=== PATIENT | female | born 1945 | race Caucasian/White ===

== ENCOUNTER 2019-02-24 09:18 | Outpatient (CLI) | payer MEDICARE ==
[2019-02-24 14:01] LABS: #Basophils 0.1 thou/uL (0.0-0.2); #Eosinphils 0.1 thou/uL (0.0-0.7); #Lymphocytes 2.6 thou/uL (1.20-3.40); #Monocytes 0.7 thou/uL (0.11-0.59); #Neutrophils 3.3 thou/uL (1.40-6.50); %Basophils 0.8 % (0.0-1.0); %Eosinophils 1.7 % (0.0-10.0); %Lymphocytes 38.1 % (21.0-51.0); %Monocytes 10.5 % (0.0-10.0); %Neutrophils 48.9 % (42.0-75.0); Hemoglobin 14.1 g/dL (12.0-16.0); Mean Corpuscular HGB CONC 33.2 g/dL (32.0-36.0); Mean Corpuscular Hemoglobin 30.6 pg (27.0-31.0); Mean Corpuscular Volume 92.3 fL (78.0-98.0); Mean Platelet Volume 8.5 fL (7.4-10.4); Platelet Count 235 thou/uL (130-400); RBC Distribution Width 12.4 % (11.5-14.5); Red Blood Cell (RBC) Count 4.61 mill/uL (4.20-5.40); White Blood Cell (WBC) Count 6.7 thou/uL (4.8-10.8)
[2019-02-24 14:11] LABS: INR-International Normal Ratio 1.1; Prothrombin Time 14.4 SEC (12.0-14.7)
[2019-02-24 14:26] LABS: Bilirubin Negative (Negative); Blood, Urine 3+ (Negative); Clarity Turbid (Clear); Glucose, Urine (Dipstick) Normal (Negative); Leukocyte 250 Leu/uL (Negative); Nitrite Negative (Negative); Protein, Urine (Dipstick) Negative (Neg-Trace); Urobilinogen Normal mg/dL (Less than 2)
[2019-02-24 14:35] LABS: Bacteria/HPF Rare-Few HPF (None Seen)
[2019-02-24 14:41] LABS: Anion Gap 15 mmol/L (10-20); BUN (Urea Nitrogen) 15 mg/dL (9.8-20.1); Calc. Creatinine Clearance 0 mL/min (70-130); Calcium 9.6 mg/dL (7.8-10.44); Carbon Dioxide 22 mmol/L (23-31); Chloride 99 mmol/L (98-107); Estimated GFR-MDRD 63; Glucose 132 mg/dL (83-110); Potassium 3.1 mmol/L (3.5-5.1); Sodium 133 mmol/L (136-145)
== END 2019-02-24 09:19 | disposition home or self-care (01) ==
LOC: LABBT 09:18
PROVIDERS: ATTEND Orthopaedic Surgery
DX: Z01.818 Encounter for other preprocedural examination (principal); M17.0 Bilateral primary osteoarthritis of knee
CPT/HCPCS: 80048; 81001; 85025; 85610; 87081; 93005; 93010

== ENCOUNTER 2019-03-07 06:34 | Day surgery (SDC) | payer MEDICARE ==
[2019-02-24 09:42] VITALS: BMI 30.1
[2019-03-07] MEDS ORDERED: Sodium Chloride 0.9% 100 ML ONE (07:08)
[2019-03-07] MEDS ORDERED: Tranexamic Acid 1,000 MG/10 ML VIAL ONE (07:08)
[2019-03-07] MEDS ORDERED: Vancomycin HCl 1.5 GM in Sodium Chloride 0.9% 250 ML 300 ML IVPB SCH ×2 (07:15→22:00)
[2019-03-07] MEDS ORDERED: Midazolam HCl 2 mg/2 ml Vial ONE (07:47)
[2019-03-07] MEDS ORDERED: Fentanyl 100 MCG/2 ML VIAL ONE (07:47)
[2019-03-07] MEDS ORDERED: Fentanyl 100 MCG/2 ML VIAL IV PRN (07:56)
[2019-03-07] MEDS ORDERED: Promethazine HCl 25 MG/ML VIAL IM PRN ×3 (07:56→11:32)
[2019-03-07] MEDS ORDERED: Ondansetron PF 4 MG/2 ML Vial IVP PRN ×2 (07:56→11:32)
[2019-03-07] MEDS ORDERED: traMADol HCl 50 MG TAB PO PRN ×2 (07:56)
[2019-03-07] MEDS ORDERED: Ropivacaine HCl/PF 250 ML in Premix Bag 1 BAG NERVE BLCK SCH (07:56)
[2019-03-07] MEDS ORDERED: Ketorolac Tromethamine 30 MG/ML VIAL IVP PRN (07:56)
[2019-03-07] MEDS ORDERED: HYDROcodone/Acetaminophen 10/325 mg Tablet PO PRN (07:56)
[2019-03-07] MEDS ORDERED: Zolpidem Tartrate 5 MG TAB PO PRN ×2 (07:56→11:32)
[2019-03-07] MEDS ORDERED: Lidocaine 1% (PF) 30 ML VIAL ONE (08:15)
[2019-03-07] MEDS ORDERED: methylPREDNISolone Acetate 40 mg/ml Vial ONE (08:15)
[2019-03-07] MEDS ORDERED: Bupivacaine PF 0.5% 30 ML VIAL ONE (08:15)
[2019-03-07] MEDS ORDERED: Promethazine HCl 25 MG/ML VIAL SLOW IVP PRN (09:41)
[2019-03-07] MEDS ORDERED: Ondansetron HCl/PF 4 MG/2 ML Vial IVP PRN (09:41)
[2019-03-07] MEDS ORDERED: diphenhydrAMINE 25 MG CAP PO PRN (11:32)
[2019-03-07] MEDS ORDERED: Acetaminophen 325 MG TAB PO PRN (11:32)
[2019-03-07] MEDS ORDERED: Tranexamic Acid 1,000 MG in Sodium Chloride 0.9% 100 ML IVPB SCH (11:45)
--- NOTE | 2019-03-07 12:43 | OP ---
DATE OF PROCEDURE: 03/07/2019 BLACK TOP RAKER: Alan Pope PA-C PREOPERATIVE DIAGNOSIS: Bilateral knee osteoarthrosis, left worse than right. POSTOPERATIVE DIAGNOSIS: Bilateral knee osteoarthrosis, left worse than right. PROCEDURE: Left total knee replacement using [employer] pinless navigation system. ANESTHESIA: General anesthetic. She also had blocks in the left lower extremity. BLOOD LOSS: Minimal. COMPLICATIONS: None. TOURNIQUET TIME: DISPOSITION: Recovery room in stable condition. IMPLANTS: To the left side include a [employer] total knee system, the femur was size 4 cruciate retaining femur, we used a size 3 primary tibial base plate. We used a size 3 x 9 mm CS X3 tibial bearing and an asymmetric 29 x 9 X3 patella. INDICATIONS: A 73-year-old female, who has dealt with bilateral knee arthritis for quite a while. At this time, she wished to have her knee replaced and the right knee injected. After all appropriate consent forms were explained and signed, she was taken to the operative room and at this time was given general anesthetic. Once the level of anesthesia was appropriate, . PROCEDURE IN DETAIL: After all appropriate consent forms were explained and signed, the patient was taken back to the operating room and at this time was given general anesthetic. Once the level of anesthesia was appropriate, the right knee was cleaned with alcohol and a mixture of local with 80 mg Depo-Medrol was injected into the right knee without complication. Band-Aid was applied. A well-padded tourniquet was placed on the left leg, and the leg was then prepped and draped in standard surgical fashion. The limb was exsanguinated and tourniquet taken up to 300 mmHg. Midline incision was made with a 10 blade down through the skin and subcutaneous tissue. Bovie electrocautery was used to coagulate any brisk venous bleeding. A new blade was used to make a medial parapatellar arthrotomy. Small subperiosteal release was performed medially and excess fat pad was removed. The knee was flexed up to gain access to the femur. The femur was navigated and distal femoral resection was made. Epicondylar access was used to align our sizing jig and this was pinned in place. We sized our femur to be a size 4. 4:1 cutting block was applied and pinned. Anterior and posterior chamfer cuts were then made. We navigated out our proximal tibia and made our proximal tibial resection. Spreaders were used to remove any posterior osteophytes off the back of the femur as well as remaining meniscal tissue. A long alignment edison was then used to achieve correct rotation of our tibial baseplate and a size 3 was chosen. This was pinned in place. We trialed the polyethylene and a 3 x 9 mm CS X3 tibial bearing polyethylene gave us full extension and good stability throughout range of motion. Two towel clips and a saw were used to cut our patella. Three lug nuts were drilled and an asymmetric 29 x 9 X3 patella was trialed which sat nicely in the trochlear groove. We then drilled our femur and punched our tibia. All components were removed. The knee was thoroughly irrigated and dried. Cement was mixed into the cement gun on the back table. Components were then placed. The knee was held out in full extension until the cement had dried. All excess bone cement was removed. Multiple #2 Vicryl stitches as well as a Quill were used to close our extensor mechanism. 0 Quill followed by a running Monoderm was then used to close the skin. Surgicel glue was then used on the skin. Once this had dried, soft tissue dressing was applied to the limb, tourniquet was let down, and the toes pinked up nicely. The patient was then awakened and taken to the recovery room in stable condition. All counts were correct at the end of the case. The patient did receive preoperative IV antibiotics. The patient was injected with Marcaine for postoperative pain relief. Job ID: [id number] [facility]
[2019-03-07] MEDS: Sodium Chloride 0.9% 1,000 ML IV SCH ×2 (13:59→20:58)
[2019-03-07] MEDS: CEFAZOLIN 2 GM in Premix Bag 1 BAG IVPB SCH (14:18)
[2019-03-07] MEDS ORDERED: Bupivacaine HCl 0.5%/Epinephrine 1:200,000/PF 30 ml Vial ONE (15:25)
[2019-03-07] MEDS ORDERED: Ropivacaine 0.2% HCl/PF (40 MG/20 ML VIAL) ONE (15:25)
[2019-03-07] MEDS ORDERED: Ondansetron PF 4 MG/2 ML Vial ONE (16:13)
[2019-03-07] MEDS ORDERED: PROPOFOL 200 MG/20 ML VIAL ONE (16:13)
[2019-03-07] MEDS ORDERED: Lidocaine 1% PF 5 ML VIAL ONE (16:13)
[2019-03-07] MEDS: hydrALAZINE 25 MG TAB PO SCH (21:02)
[2019-03-07] MEDS: Atorvastatin Calcium 10 MG TAB PO SCH (21:05)
[2019-03-07] MEDS: Aspirin 81 mg Enteric Coated Tablet PO SCH (21:05)
[2019-03-07] MEDS: HYDROcodone/Acetaminophen 10/325 mg Tablet PO PRN (21:44)
[2019-03-08] MEDS: CEFAZOLIN 2 GM in Premix Bag 1 BAG IVPB SCH
[2019-03-08] MEDS: HYDROcodone/Acetaminophen 10/325 mg Tablet PO PRN ×3 (04:46→20:47)
[2019-03-08 04:49] LABS: Hemoglobin 12.3 g/dL (12.0-16.0); Mean Corpuscular HGB CONC 33.7 g/dL (32.0-36.0); Mean Corpuscular Hemoglobin 30.7 pg (27.0-31.0); Mean Corpuscular Volume 91.3 fL (78.0-98.0); Mean Platelet Volume 8.1 fL (7.4-10.4); Platelet Count 179 thou/uL (130-400); RBC Distribution Width 12.4 % (11.5-14.5); Red Blood Cell (RBC) Count 4.02 mill/uL (4.20-5.40); White Blood Cell (WBC) Count 11.3 thou/uL (4.8-10.8)
[2019-03-08] MEDS: Sodium Chloride 0.9% 1,000 ML IV SCH ×2 (04:58→10:18)
[2019-03-08] MEDS: Multivitamin W/ Minerals 1 TAB PO SCH (09:07)
[2019-03-08] MEDS: Triamterene/Hydrochlorothiazide 37.5 mg/25 mg Tablet PO SCH (09:08)
[2019-03-08] MEDS: Ferrous Gluconate 324 MG TAB PO SCH ×2 (09:08→20:45)
[2019-03-08] MEDS: hydrALAZINE 25 MG TAB PO SCH ×2 (09:08→20:46)
[2019-03-08] MEDS: Aspirin 81 mg Enteric Coated Tablet PO SCH ×2 (09:09→20:45)
[2019-03-08] MEDS: Senokot S 8.6-50 MG TAB PO SCH ×2 (09:09→20:47)
--- NOTE | 2019-03-08 11:05 | PDOC.HOSPP ---
- Subjective Encounter Date: 03/08/19 Encounter Time: 08:40 Subjective: Patient seen and examined. No new complaints. No overnight events - Objective Vital Signs & Weight: Vital Signs (12 hours) Temp Pulse Resp BP Pulse Ox 03/08/19 09:14 98.9 F 94 94 L 03/08/19 07:23 99.8 F H 107 H 14 136/78 96 03/08/19 04:00 99.2 F 92 18 142/84 H 96 03/08/19 00:00 97.8 F 100 18 105/63 97 Weight Weight 210 lb I&O: 03/07/19 03/08/19 03/09/19 06:59 06:59 06:59 Intake Total 4080 Output Total 1999 Result Diagrams: 03/08/19 04:27 Hospitalist ROS - Review of Systems Eyes: denies: pain, vision change, conjunctivae inflammation, eyelid inflammation, redness, other ENT: denies: ear pain, ear discharge, nose pain, nose discharge, nose congestion , mouth pain, mouth swelling, throat pain, throat swelling, other Respiratory: denies: cough, dry, shortness of breath, hemoptysis, SOB with excertion, pleuritic pain, sputum, wheezing, other Cardiovascular: denies: chest pain, palpitations, orthopnea, paroxysmal noc. dyspnea, edema, light headedness, other Gastrointestinal: denies: nausea, vomiting, abdominal pain, diarrhea, constipation, melena, hematochezia, other Genitourinary: denies: dysuria, frequency, incontinence, hematuria, retention, other Musculoskeletal: denies: neck pain, shoulder pain, arm pain, back pain, hand pain, leg pain, foot pain, other Skin: denies: rash, lesions, heather, bruising, other - Medication Medications: Active Medications Generic Name Dose Route Start Last Admin Trade Name Freq PRN Reason Stop Dose Admin Hydrocodone Bitart/Acetaminophen 2 tab 03/07/19 07:56 03/08/19 09:10 [place] 10/325 PO 2 tab Q4H PRN Administration PAIN (4-6) Aspirin 81 mg 03/07/19 21:00 03/08/19 09:09 Ecotrin PO 81 mg BID [place] Administration Atorvastatin Calcium 10 mg 03/07/19 21:00 03/07/19 21:05 Lipitor PO 10 mg HS [place] Administration Ferrous Gluconate 324 mg 03/08/19 09:00 03/08/19 09:08 Fergon PO 324 mg BID [place] Administration Hydralazine HCl 50 mg 03/07/19 21:00 03/08/19 09:08 Apresoline PO 50 mg BID [place] Administration Sodium Chloride 1,000 mls @ 100 mls/hr 03/07/19 11:45 03/08/19 10:18 Normal Saline 0.9% IV Not Given .Q10H [place] Iron/Minerals/Multivitamins 1 tab 03/08/19 09:00 03/08/19 09:07 Theragran M PO 1 tab DAILY [place] Administration Senna/Docusate Sodium 2 tab 03/08/19 09:00 03/08/19 09:09 Senokot S PO 2 tab BID [place] Administration Sodium Chloride 10 ml 03/07/19 09:00 03/08/19 09:14 Flush - Normal Saline IVF Not Given Q12HR [place] Triamterene/HCTZ 1 tab 03/08/19 09:00 03/08/19 09:08 Maxzide-25 PO 1 tab QAM [place] Administration - Exam General Appearance: NAD, awake alert Eye: PERRL, anicteric sclera ENT: normocephalic atraumatic, no oropharyngeal lesions Neck: supple, symmetric, no JVD, no thyromegaly Heart: RRR, no murmur, no gallops, no rubs Respiratory: CTAB, no wheezes, no rales, no ronchi Gastrointestinal: soft, non-tender, non-distended, normal bowel sounds Extremities: no cyanosis, no clubbing, no edema Extremities - other findings: surigcal site with dressing, nerve block in place Skin: normal turgor, no lesions Neurological: cranial nerve grossly intact, no focal deficits Musculoskeletal: normal tone, normal strength Psychiatric: normal affect, normal behavior Hosp A/P (1) Status post total left knee replacement Code(s): Z96.652 - PRESENCE OF LEFT ARTIFICIAL KNEE JOINT Status: Acute (2) Hypertension Code(s): I10 - ESSENTIAL (PRIMARY) HYPERTENSION Status: Chronic (3) Dyslipidemia Code(s): E78.5 - HYPERLIPIDEMIA, UNSPECIFIED Status: Chronic (4) Obesity (BMI 30.0-34.9) Code(s): E66.9 - OBESITY, UNSPECIFIED Status: Chronic (5) Osteoarthritis Code(s): M19.90 - UNSPECIFIED OSTEOARTHRITIS, UNSPECIFIED SITE Status: Chronic - Plan old records reviewed/req, PT/OT continue aspirin for DVT prophylaxis her pain is controlled nerve block as per anesthesia continue PT as per protocol her home medication reconcileed discharge decision as per primary team medication reviewed as above, symptomatic treatment code full code
[2019-03-08] MEDS: Atorvastatin Calcium 10 MG TAB PO SCH (20:47)
[2019-03-09] MEDS: Sodium Chloride 0.9% 1,000 ML IV SCH ×2 (04:23→13:12)
[2019-03-09 04:53] LABS: Hemoglobin 11.3 g/dL (12.0-16.0); Mean Corpuscular Hemoglobin 30.8 pg (27.0-31.0); Mean Corpuscular Volume 90.7 fL (78.0-98.0); Mean Platelet Volume 8.1 fL (7.4-10.4); Platelet Count 173 thou/uL (130-400); RBC Distribution Width 12.4 % (11.5-14.5); Red Blood Cell (RBC) Count 3.68 mill/uL (4.20-5.40); White Blood Cell (WBC) Count 12.4 thou/uL (4.8-10.8)
[2019-03-09] MEDS: Aspirin 81 mg Enteric Coated Tablet PO SCH ×2 (08:18→20:15)
[2019-03-09] MEDS: Ferrous Gluconate 324 MG TAB PO SCH ×2 (08:18→20:15)
[2019-03-09] MEDS: Senokot S 8.6-50 MG TAB PO SCH ×2 (08:18→20:15)
[2019-03-09] MEDS: Triamterene/Hydrochlorothiazide 37.5 mg/25 mg Tablet PO SCH (08:18)
[2019-03-09] MEDS: Multivitamin W/ Minerals 1 TAB PO SCH (08:18)
[2019-03-09] MEDS: hydrALAZINE 25 MG TAB PO SCH ×2 (08:18→20:15)
[2019-03-09] MEDS: HYDROcodone/Acetaminophen 10/325 mg Tablet PO PRN ×2 (08:19→18:51)
--- NOTE | 2019-03-09 14:28 | PDOC.HOSPP ---
- Subjective Encounter Date: 03/09/19 Encounter Time: 14:27 Subjective: no chest pain, nausea, fever - Objective Vital Signs & Weight: Vital Signs (12 hours) Temp Pulse Resp BP BP Pulse Ox 03/09/19 08:19 95 03/09/19 08:18 83 150/84 H 03/09/19 07:35 98.4 F 83 16 150/84 H 95 03/09/19 04:00 98.7 F 98 16 112/71 93 L Weight Admit Weight 210 lb Weight 210 lb I&O: 03/08/19 03/09/19 03/10/19 06:59 06:59 06:59 Intake Total 4080 1900 960 Output Total 1999 1400 1400 Balance 2080 500 -440 Result Diagrams: 03/09/19 04:25 Hospitalist ROS - Medication Medications: Active Medications Generic Name Dose Route Start Last Admin Trade Name Freq PRN Reason Stop Dose Admin Hydrocodone Bitart/Acetaminophen 2 tab 03/07/19 07:56 03/09/19 08:19 [place] 10/325 PO 2 tab Q4H PRN Administration PAIN (4-6) Aspirin 81 mg 03/07/19 21:00 03/09/19 08:18 Ecotrin PO 81 mg BID [place] Administration Atorvastatin Calcium 10 mg 03/07/19 21:00 03/08/19 20:47 Lipitor PO 10 mg HS [place] Administration Ferrous Gluconate 324 mg 03/08/19 09:00 03/09/19 08:18 Fergon PO 324 mg BID [place] Administration Hydralazine HCl 50 mg 03/07/19 21:00 03/09/19 08:18 Apresoline PO 50 mg BID [place] Administration Ropivacaine 250 ml/ Device 250 mls @ 0 mls/hr 03/07/19 07:56 03/08/19 12:46 NERVE BLCK 250 mls INF [place] Administration As Directed Sodium Chloride 1,000 mls @ 100 mls/hr 03/07/19 11:45 03/09/19 13:12 Normal Saline 0.9% IV Not Given .Q10H [place] Iron/Minerals/Multivitamins 1 tab 03/08/19 09:00 03/09/19 08:18 Theragran M PO 1 tab DAILY [place] Administration Mirabegron 25 mg 03/08/19 09:00 03/09/19 08:19 Myrbetriq Er PO 25 mg DAILY [place] Administration Senna/Docusate Sodium 2 tab 03/08/19 09:00 03/09/19 08:18 Senokot S PO 2 tab BID [place] Administration Sodium Chloride 10 ml 03/07/19 09:00 03/09/19 08:20 Flush - Normal Saline IVF 10 ml Q12HR [place] Administration Triamterene/HCTZ 1 tab 03/08/19 09:00 03/09/19 08:18 Maxzide-25 PO 1 tab QAM [place] Administration - Exam Neck: no JVD Heart: RRR, no murmur Respiratory: CTAB Gastrointestinal: soft, normal bowel sounds Extremities: no edema Hosp A/P (1) Status post total left knee replacement Code(s): Z96.652 - PRESENCE OF LEFT ARTIFICIAL KNEE JOINT Status: Acute (2) Dyslipidemia Code(s): E78.5 - HYPERLIPIDEMIA, UNSPECIFIED Status: Chronic (3) Hypertension Code(s): I10 - ESSENTIAL (PRIMARY) HYPERTENSION Status: Chronic Qualifiers: Hypertension type: essential hypertension Qualified Code(s): I10 - Essential (primary) hypertension (4) Osteoarthritis Code(s): M19.90 - UNSPECIFIED OSTEOARTHRITIS, UNSPECIFIED SITE Status: Chronic Qualifiers: Osteoarthritis location: unspecified site - Plan slow progress with PT cont present meds will follow
[2019-03-09] MEDS: Atorvastatin Calcium 10 MG TAB PO SCH (20:15)
[2019-03-10] MEDS: Sodium Chloride 0.9% 1,000 ML IV SCH ×2 (01:02→10:06)
[2019-03-10 05:19] LABS: White Blood Cell (WBC) Count 10.8 thou/uL (4.8-10.8)
[2019-03-10 05:37] LABS: Hemoglobin 11.1 g/dL (12.0-16.0); Mean Corpuscular Hemoglobin 29.9 pg (27.0-31.0); Mean Corpuscular Volume 90.6 fL (78.0-98.0); Mean Platelet Volume 8.5 fL (7.4-10.4); Platelet Count 178 thou/uL (130-400); RBC Distribution Width 12.5 % (11.5-14.5); Red Blood Cell (RBC) Count 3.72 mill/uL (4.20-5.40)
[2019-03-10] MEDS: Multivitamin W/ Minerals 1 TAB PO SCH (08:00)
[2019-03-10] MEDS: Aspirin 81 mg Enteric Coated Tablet PO SCH (08:01)
[2019-03-10] MEDS: hydrALAZINE 25 MG TAB PO SCH (08:01)
[2019-03-10] MEDS: Triamterene/Hydrochlorothiazide 37.5 mg/25 mg Tablet PO SCH (08:01)
[2019-03-10] MEDS: Senokot S 8.6-50 MG TAB PO SCH (08:01)
[2019-03-10] MEDS: Ferrous Gluconate 324 MG TAB PO SCH (08:01)
[2019-03-10] MEDS: HYDROcodone/Acetaminophen 10/325 mg Tablet PO PRN (08:02)
[2019-03-10 14:40] VITALS: BP 147/80; TEMP 96.1
[2019-03-13] MEDS ORDERED: Estradiol 0.01% Vaginal Cream 42.5 gm Tube VAG SCH (08:31)
== END 2019-03-10 14:55 | disposition home or self-care (01) ==
LOC: SDC 06:34 → SJJU 11:32 → SDC 03-10 14:55
PROVIDERS: ATTEND Orthopaedic Surgery
PROC: 0SRD0JZ Replacement of Left Knee Joint with Synthetic Substitute, Open Approach (ICD-10-PCS; principal; 2019-03-07)
PROC: 3E0T3BZ Introduction of Anesthetic Agent into Peripheral Nerves and Plexi, Percutaneous Approach (ICD-10-PCS; 2019-03-07)
PROC: 3E0T3BZ Introduction of Anesthetic Agent into Peripheral Nerves and Plexi, Percutaneous Approach (ICD-10-PCS; 2019-03-07)
PROC: 8E0YXBZ Computer Assisted Procedure of Lower Extremity (ICD-10-PCS; 2019-03-07)
DX: M17.0 Bilateral primary osteoarthritis of knee (principal); G89.18 Other acute postprocedural pain; I10 Essential (primary) hypertension; E78.5 Hyperlipidemia, unspecified; G47.30 Sleep apnea, unspecified; E66.9 Obesity, unspecified; Z68.30 Body mass index [BMI] 30.0-30.9, adult; Z79.1 Long term (current) use of non-steroidal anti-inflammatories (NSAID); Z79.899 Other long term (current) drug therapy; Z88.2 Allergy status to sulfonamides; Z88.8 Allergy status to other drugs, medicaments and biological substances
CPT/HCPCS: 20985; 27447; 64445; 64448; 85027; 97116 ×4; 97139 ×4; 97150 ×3; 97530 ×3; 98961; C1713; C1776; 36415; J0670; J0690; J1030; J2001; J2250; J2405; J2704; J2795; J3010; J3370; J3490; J7050; S0020